=== PATIENT | male | born 1995 | race Caucasian/White ===

== ENCOUNTER 2024-09-28 11:53 | Emergency (ER) | payer OTHER ==
[2024-09-28 12:06] VITALS: BP 138/81; PULSE 74; RESP 16; TEMP 98.7; BMI 34.2
[2024-09-28 13:12] LABS: COCAINE, UR NEGATIVE (NEGATIVE); METHADONE, UR NEGATIVE (NEGATIVE); URINE BENZODIAZEPINES NEGATIVE (NEGATIVE)
[2024-09-28 13:13] LABS: PHENCYCLIDINE,URINE NEGATIVE (NEGATIVE); URINE AMPHETAMINES NEGATIVE (NEGATIVE); URINE BARBITURATES NEGATIVE (NEGATIVE)
[2024-09-28 13:16] LABS: OPIATES, URI NEGATIVE (NEGATIVE)
== END 2024-09-28 15:11 | disposition home or self-care (01) ==
LOC: JER 11:53
DX: R51.9 Headache, unspecified (principal); R42 Dizziness and giddiness; Z72.820 Sleep deprivation
CPT/HCPCS: 70450-TC; 80307; 99284-25